=== PATIENT | male | born 1980 | race Caucasian/White ===

== ENCOUNTER 2025-02-26 13:44 | Emergency (ER) | payer MEDICARE, MEDICAID ==
[~2025-02-26] VITALS: Ht 165.1 cm; Wt 106.0 kg
[2025-02-26 13:47] VITALS: BP 126/68; PULSE 84; RESP 20; TEMP 36.8; O2SAT 99
== END 2025-02-26 14:41 | disposition left against medical advice (07) ==
LOC: ER 13:54
DX: R51.9 Headache, unspecified (principal); F41.9 Anxiety disorder, unspecified; F15.90 Other stimulant use, unspecified, uncomplicated; Z53.21 Procedure and treatment not carried out due to patient leaving prior to being seen by health care provider